=== PATIENT | female | born 1940 | race Two or more races ===

== ENCOUNTER 2019-06-15 06:52 | Day surgery (SDC) | payer OTHER ==
[~2019-06-15 06:52] MED LIST: GABAPENTIN100 MG PO; PROTON PO; SYNTH PO; ZANTAC150 M3 PO
[2019-06-15] MEDS ORDERED: ULTRACET PO (11:11)
[2019-06-15] MEDS ORDERED: MACROBID 100 M100 MG PO (11:12)
== END 2019-06-15 16:30 | disposition home or self-care (01) ==
LOC: CIR.AMB 06:52
DX: N39.3 Stress incontinence (female) (male) (principal)
CPT/HCPCS: 57288; C1771